=== PATIENT | male | born 1980 | race Two or more races ===

== ENCOUNTER 2022-04-18 05:15 | Day surgery (SDC) | payer OTHER ==
[~2022-04-18] VITALS: Ht 170.2 cm; Wt 80.3 kg
[2022-04-18] MEDS ORDERED: PERCOCET 5-3251 EACH PO (11:49)
== END 2022-04-18 16:10 | disposition home or self-care (01) ==
LOC: CIR.AMB 05:15
PROVIDERS: ATTEND Surgery
DX: K60.1 Chronic anal fissure (principal); K62.89 Other specified diseases of anus and rectum; K62.4 Stenosis of anus and rectum; Z20.822 Contact with and (suspected) exposure to COVID-19